=== PATIENT | female | born 1980 | race Caucasian/White ===

== ENCOUNTER 2017-04-03 11:50 | Emergency (ER) | payer OTHER ==
[~2017-04-03] VITALS: Ht 165.1 cm; Wt 80.7 kg
[~2017-04-03 11:50] MED LIST: CLEOCIN HCL150 MG PO; CLEOCIN HCL300 MG PO; FLEXERIL PO; HYDROCODONE-AP1 EAC6 PO; IBUPROFEN 200200 M1 PO; IBUPROFEN 800800 M1 PO; IBUPROFEN 800800 MG PO; LIDOCAINE VISC100 M1 SWISH&SPIT; MEDROLDOSEPACK PO; MOBIC7.5 MG PO; NAPROSYN500 MG PO; NOHOMEMEDICATIONS; NORCO 5-325 TA1 EAC1 PO; NORCO 5-325 TA1 EACH PO; ROBAXIN 750 MG750 M1 PO; TRAMADOL 50 MG50 MG PO; TYLENOL325 MG PO
[2017-04-03 11:51] VITALS: BP 128/87
[2017-04-03] MEDS ORDERED: IBUPROFEN 400400 M2 PO (12:30)
[2017-04-09] MEDS ORDERED: FLEXERIL PO (10:58)
[2017-04-09] MEDS ORDERED: NAPROSYN500 MG PO (10:58)
== END 2017-04-03 12:53 | disposition home or self-care (01) ==
LOC: ER 11:50
DX: K04.7 Periapical abscess without sinus (principal); Z90.710 Acquired absence of both cervix and uterus; Z90.89 Acquired absence of other organs; Z98.890 Other specified postprocedural states; Z90.49 Acquired absence of other specified parts of digestive tract; Z88.5 Allergy status to narcotic agent; Z88.0 Allergy status to penicillin; Z88.6 Allergy status to analgesic agent

== ENCOUNTER 2018-03-24 11:32 | Emergency (ER) | payer OTHER ==
[~2018-03-24] VITALS: Ht 165.1 cm; Wt 80.7 kg
[~2018-03-24 11:32] MED LIST changes: +HYDROCODON-ACE1 EAC7 PO; +IBUPROFEN 400400 M2 PO; +PERCOCET PO; +ULTRAM 50MG TAB50 MG PO
[2018-03-24] MEDS ORDERED: NORFLEX100 MG PO (13:33)
[2018-03-24] MEDS ORDERED: MOBIC7.5 MG PO (13:33)
[2018-03-24] MEDS ORDERED: NORCO 5-325 TA1 EACH PO (13:33)
[2018-03-24 13:46] VITALS: BP 120/91
== END 2018-03-24 13:41 | disposition home or self-care (01) ==
LOC: ER 11:32
DX: M54.16 Radiculopathy, lumbar region (principal); Z90.49 Acquired absence of other specified parts of digestive tract; Z90.710 Acquired absence of both cervix and uterus; Z88.0 Allergy status to penicillin; Z88.5 Allergy status to narcotic agent

== ENCOUNTER 2018-04-01 16:12 | Emergency (ER) | payer OTHER ==
[~2018-04-01] VITALS: Ht 165.1 cm; Wt 80.7 kg
[~2018-04-01 16:12] MED LIST changes: +NORFLEX100 MG PO
[2018-04-01] MEDS ORDERED: ULTRAM 50MG TAB50 MG PO (17:45)
[2018-04-01] MEDS ORDERED: NORFLEX100 MG PO (17:45)
[2018-04-01] MEDS ORDERED: NABUMETONE 750750 M1 PO (17:45)
[2018-04-01 17:56] VITALS: BP 146/106
== END 2018-04-01 18:08 | disposition home or self-care (01) ==
LOC: ER 16:12
DX: S46.811A Strain of other muscles, fascia and tendons at shoulder and upper arm level, right arm, initial encounter (principal); Z88.6 Allergy status to analgesic agent; Z88.5 Allergy status to narcotic agent; Z88.0 Allergy status to penicillin; Z90.710 Acquired absence of both cervix and uterus; Z90.89 Acquired absence of other organs; Z90.49 Acquired absence of other specified parts of digestive tract; X50.0XXA Overexertion from strenuous movement or load, initial encounter; Y92.89 Other specified places as the place of occurrence of the external cause; Y93.89 Activity, other specified; Y99.8 Other external cause status

== ENCOUNTER 2018-04-24 09:36 | Emergency (ER) | payer OTHER ==
[~2018-04-24] VITALS: Ht 165.1 cm; Wt 80.7 kg
[~2018-04-24 09:36] MED LIST changes: +NABUMETONE 750750 M1 PO
[2018-04-24] MEDS ORDERED: ULTRAM 50MG TAB50 MG PO (10:16)
[2018-04-24] MEDS ORDERED: CYCLOBENZAPRINE5 MG PO (10:16)
== END 2018-04-24 10:00 | disposition home or self-care (01) ==
LOC: ER 09:36
DX: S46.812A Strain of other muscles, fascia and tendons at shoulder and upper arm level, left arm, initial encounter (principal); Z88.6 Allergy status to analgesic agent; Z88.5 Allergy status to narcotic agent; Z88.0 Allergy status to penicillin; Z90.710 Acquired absence of both cervix and uterus; Z90.89 Acquired absence of other organs; Z90.49 Acquired absence of other specified parts of digestive tract; X50.0XXA Overexertion from strenuous movement or load, initial encounter; Y92.89 Other specified places as the place of occurrence of the external cause; Y93.89 Activity, other specified; Y99.8 Other external cause status

== ENCOUNTER 2018-05-01 09:29 | Emergency (ER) | payer OTHER ==
[~2018-05-01] VITALS: Ht 165.1 cm; Wt 80.7 kg
[~2018-05-01 09:29] MED LIST changes: +CYCLOBENZAPRINE5 MG PO
[2018-05-01] MEDS ORDERED: ULTRAM 50MG TAB50 MG PO (10:32)
[2018-05-01] MEDS ORDERED: MOBIC15 MG PO (10:32)
== END 2018-05-01 10:51 | disposition home or self-care (01) ==
LOC: ER 09:29
DX: S39.012A Strain of muscle, fascia and tendon of lower back, initial encounter (principal); Z88.6 Allergy status to analgesic agent; Z88.5 Allergy status to narcotic agent; Z88.0 Allergy status to penicillin; Z90.710 Acquired absence of both cervix and uterus; Z90.89 Acquired absence of other organs; Z90.49 Acquired absence of other specified parts of digestive tract; X50.1XXA Overexertion from prolonged static or awkward postures, initial encounter; Y92.89 Other specified places as the place of occurrence of the external cause; Y93.89 Activity, other specified; Y99.8 Other external cause status

== ENCOUNTER 2018-06-09 09:37 | Emergency (ER) | payer OTHER ==
[~2018-06-09] VITALS: Ht 165.1 cm; Wt 80.7 kg
[~2018-06-09 09:37] MED LIST changes: +DICLOFENAC SODI25 MG PO; +MOBIC15 MG PO
[2018-06-09] MEDS ORDERED: TRAMADOL 50 MG50 MG PO (10:11)
[2018-06-09] MEDS ORDERED: PREDNISONE 20 M20 MG PO (10:11)
[2018-06-09] MEDS ORDERED: CYCLOBENZAPRINE5 MG PO (10:11)
[2018-06-09 11:08] VITALS: BP 141/90
== END 2018-06-09 11:10 | disposition home or self-care (01) ==
LOC: ER 09:37
DX: M54.5 Low back pain (principal); X58.XXXA Exposure to other specified factors, initial encounter; Y93.89 Activity, other specified; Y92.89 Other specified places as the place of occurrence of the external cause; Y99.8 Other external cause status; Z90.49 Acquired absence of other specified parts of digestive tract; Z90.710 Acquired absence of both cervix and uterus; Z88.0 Allergy status to penicillin; Z88.5 Allergy status to narcotic agent

== ENCOUNTER 2018-06-19 16:09 | Emergency (ER) | payer OTHER ==
[~2018-06-19] VITALS: Ht 165.1 cm; Wt 80.7 kg
[~2018-06-19 16:09] MED LIST changes: +PREDNISONE 20 M20 MG PO
[2018-06-19] MEDS ORDERED: MOBIC15 MG PO (18:17)
[2018-06-19] MEDS ORDERED: VOLTAREN GEL 1100 G2 TOP (18:17)
[2018-06-19 18:28] VITALS: BP 124/87
== END 2018-06-19 18:29 | disposition home or self-care (01) ==
LOC: ER 16:09
DX: M25.512 Pain in left shoulder (principal); Z90.49 Acquired absence of other specified parts of digestive tract; Z90.710 Acquired absence of both cervix and uterus

== ENCOUNTER 2018-07-01 11:56 | Emergency (ER) | payer OTHER ==
[~2018-07-01] VITALS: Ht 165.1 cm; Wt 80.7 kg
[~2018-07-01 11:56] MED LIST changes: +VOLTAREN GEL 1100 G2 TOP
[2018-07-01 12:29] LABS: URINE CLARITY SL HAZY; URINE COLOR YELLOW
[2018-07-01 12:30] LABS: URINE BILIRUBIN NEGATIVE (Negative); URINE BLOOD TRACE (Negative); URINE GLUCOSE-RANDOM* NEGATIVE (Negative); URINE KETONES NEGATIVE (Negative); URINE LEUKOCYTES-REFLEX 1+ (Negative); URINE NITRITE-REFLEX POSITIVE (Negative); URINE PROTEIN (DIPSTICK) NEGATIVE (Negative); URINE SPECIFIC GRAVITY 1.025 (1.005-1.035); URINE UROBILINOGEN 0.2 E.U./dl (0.2-1.0)
[2018-07-01 12:40] LABS: ABSOLUTE NEUTROPHILS 5.8 thou/uL (1.4-8.2); BASOPHILS 0.5 % (0.0-2.0); EOSINOPHILS 0.6 % (0.0-3.0); HEMATOCRIT 38.5 % (37.0-47.0); LYMPHOCYTES 26.2 % (24.0-44.0); MCH 31.9 pg (26.0-34.0); MCHC 33.8 g/dL (28.0-37.0); MCV 94.5 fL (80.0-100.0); MONOCYTES 6.3 % (1.0-8.0); PLATELET COUNT 461 thou/uL (150-400); POLYS 66.4 % (36.0-66.0); RBC 4.08 mil/uL (4.20-5.00); RDW 14.8 % (10.5-14.5); WBC 8.8 thou/uL (4.0-11.0)
[2018-07-01 12:47] LABS: CASTS None Seen /LPF (None Seen); SQUAMOUS >10 Many /LPF (0-3)
[2018-07-01 12:48] LABS: MUCUS >6 Heavy strn/LPF (None Seen); URINE RBC 0-2 Rare /HPF (0-2); URINE WBC-REFLEX >25 Many /HPF (0-5)
[2018-07-01 12:48] LABS: CALCIUM 9.2 mg/dL (8.5-10.1); CREATININE 0.9 mg/dL (0.6-1.0)
[2018-07-01 12:49] LABS: BACTERIA-REFLEX >30 Many /HPF (None Seen); CRYSTALS None Seen /LPF (None Seen)
[2018-07-01 12:54] LABS: ALBUMIN 3.9 g/dL (3.4-5.0)
[2018-07-01] MEDS ORDERED: DICLOFENAC SODI75 MG PO (13:53)
[2018-07-01] MEDS ORDERED: KEFLEX500 M1 PO (13:59)
[2018-07-01 14:06] VITALS: BP 126/81
== END 2018-07-01 14:07 | disposition home or self-care (01) ==
LOC: ER 11:56
PROVIDERS: Nurse Practitioner Family
DX: N39.0 Urinary tract infection, site not specified (principal); E87.6 Hypokalemia; R10.2 Pelvic and perineal pain; Z88.6 Allergy status to analgesic agent; Z88.5 Allergy status to narcotic agent; Z88.0 Allergy status to penicillin; Z90.710 Acquired absence of both cervix and uterus; Z90.89 Acquired absence of other organs; Z90.49 Acquired absence of other specified parts of digestive tract

== ENCOUNTER 2018-08-06 19:33 | Emergency (ER) | payer OTHER ==
[~2018-08-06] VITALS: Ht 165.1 cm; Wt 80.7 kg
[~2018-08-06 19:33] MED LIST changes: +DICLOFENAC SODI75 MG PO; +KEFLEX500 M1 PO
[2018-08-06] MEDS ORDERED: MEDROLDOSEPACK PO (20:56)
[2018-08-06] MEDS ORDERED: TRAMADOL 50 MG50 MG PO (20:56)
[2018-08-06] MEDS ORDERED: CYCLOBENZAPRINE5 MG PO (20:56)
[2018-08-06 21:05] VITALS: BP 148/96
== END 2018-08-06 21:06 | disposition home or self-care (01) ==
LOC: ER 19:33
DX: M54.5 Low back pain (principal); Z88.6 Allergy status to analgesic agent; Z88.5 Allergy status to narcotic agent; Z88.0 Allergy status to penicillin; Z90.710 Acquired absence of both cervix and uterus; Z90.89 Acquired absence of other organs; Z90.49 Acquired absence of other specified parts of digestive tract

== ENCOUNTER 2018-09-03 12:22 | Emergency (ER) | payer OTHER ==
[~2018-09-03] VITALS: Ht 165.1 cm; Wt 81.2 kg
[2018-09-03] MEDS ORDERED: MOBIC15 MG PO (13:16)
[2018-09-03] MEDS ORDERED: HYDROCODONE-AP1 EAC6 PO (13:16)
[2018-09-03 13:48] VITALS: BP 137/89
== END 2018-09-03 13:48 | disposition home or self-care (01) ==
LOC: ER 12:22
DX: S46.912A Strain of unspecified muscle, fascia and tendon at shoulder and upper arm level, left arm, initial encounter (principal); Z90.49 Acquired absence of other specified parts of digestive tract; Z90.710 Acquired absence of both cervix and uterus; Z88.0 Allergy status to penicillin; Z88.5 Allergy status to narcotic agent; Z88.8 Allergy status to other drugs, medicaments and biological substances; X58.XXXA Exposure to other specified factors, initial encounter; Y93.89 Activity, other specified; Y92.89 Other specified places as the place of occurrence of the external cause; Y99.8 Other external cause status

== ENCOUNTER 2018-09-29 09:50 | Emergency (ER) | payer OTHER ==
[~2018-09-29] VITALS: Ht 165.1 cm; Wt 80.7 kg
[2018-09-29] MEDS ORDERED: ULTRAM 50MG TAB50 MG PO (10:15)
[2018-09-29] MEDS ORDERED: VOLTAREN GEL 1100 G2 TOP (10:17)
[2018-09-29 11:10] VITALS: BP 122/81
== END 2018-09-29 11:17 | disposition home or self-care (01) ==
LOC: ER 09:50
DX: M25.511 Pain in right shoulder (principal); Z88.5 Allergy status to narcotic agent; Z88.6 Allergy status to analgesic agent; Z88.0 Allergy status to penicillin; Z90.49 Acquired absence of other specified parts of digestive tract; Z90.710 Acquired absence of both cervix and uterus; Z98.890 Other specified postprocedural states

== ENCOUNTER 2018-10-14 19:45 | Emergency (ER) | payer OTHER ==
[~2018-10-14] VITALS: Ht 165.1 cm; Wt 80.7 kg
[2018-10-14 20:04] LABS: URINE BILIRUBIN NEGATIVE (Negative); URINE BLOOD TRACE (Negative); URINE CLARITY CLEAR; URINE COLOR YELLOW; URINE GLUCOSE-RANDOM* NEGATIVE (Negative); URINE KETONES TRACE (Negative); URINE LEUKOCYTES-REFLEX NEGATIVE (Negative); URINE NITRITE-REFLEX POSITIVE (Negative); URINE PROTEIN (DIPSTICK) TRACE (Negative); URINE SPECIFIC GRAVITY 1.025 (1.005-1.035)
[2018-10-14 20:11] LABS: AMP/METHAMP Negative (Negative); BARBITURATES Negative (Negative); BENZODIAZEPINES Negative (Negative); COCAINE Negative (Negative); METHADONE Negative (Negative); OPIATES Negative (Negative); PCP Negative (Negative)
[2018-10-14 20:15] LABS: CASTS None Seen /LPF (None Seen); SQUAMOUS 0-3 Few /LPF (0-3); URINE RBC 3-10 Few /HPF (0-2); URINE WBC-REFLEX None Seen /HPF (0-5)
[2018-10-14 20:16] LABS: BACTERIA-REFLEX >30 Many /HPF (None Seen); CRYSTALS None Seen /LPF (None Seen)
[2018-10-14 21:52] VITALS: BP 134/88
== END 2018-10-14 21:54 | disposition home or self-care (01) ==
LOC: ER 19:45
PROVIDERS: Emergency Medicine
DX: M54.5 Low back pain (principal); Z90.49 Acquired absence of other specified parts of digestive tract; Z90.710 Acquired absence of both cervix and uterus; Z88.0 Allergy status to penicillin; Z88.5 Allergy status to narcotic agent; Z88.8 Allergy status to other drugs, medicaments and biological substances

== ENCOUNTER 2018-11-10 15:43 | Emergency (ER) | payer OTHER ==
[~2018-11-10] VITALS: Ht 165.1 cm; Wt 80.7 kg
[2018-11-10] MEDS ORDERED: MOBIC15 MG PO (16:31)
[2018-11-10 17:10] VITALS: BP 133/94
== END 2018-11-10 17:10 | disposition home or self-care (01) ==
LOC: ER 15:43
DX: S46.911A Strain of unspecified muscle, fascia and tendon at shoulder and upper arm level, right arm, initial encounter (principal); Z90.49 Acquired absence of other specified parts of digestive tract; Z90.710 Acquired absence of both cervix and uterus; Z88.0 Allergy status to penicillin; Z88.5 Allergy status to narcotic agent; Z88.6 Allergy status to analgesic agent; X50.0XXA Overexertion from strenuous movement or load, initial encounter; Y93.89 Activity, other specified; Y92.89 Other specified places as the place of occurrence of the external cause; Y99.8 Other external cause status

== ENCOUNTER 2020-03-13 17:51 | Emergency (ER) | payer OTHER ==
[~2020-03-13] VITALS: Ht 165.1 cm; Wt 80.7 kg
[~2020-03-13 17:51] MED LIST changes: +BENTYL 20 MG TA20 M1 PO; +DIAZEPAM 5 MG5 M1 PO; +DIAZEPAM 5 MG5 MG PO; +EC-NAPROSYN500 M1 PO; +LIDODERM1 EACH TRANSDERM; +MELOXICAM15 MG PO; +NORCO 5-325 TA1 EAC2 PO; +ONDANSETRON HCL4 M2 PO; +PREDNISONE 10 M10 M1 PO
[2020-03-13] MEDS ORDERED: MOBIC15 MG PO (19:05)
[2020-03-13 19:45] VITALS: BP 147/98
== END 2020-03-13 19:46 | disposition home or self-care (01) ==
LOC: ER 17:51
DX: M25.511 Pain in right shoulder (principal); Z90.49 Acquired absence of other specified parts of digestive tract; Z90.710 Acquired absence of both cervix and uterus; Z90.89 Acquired absence of other organs; Z88.0 Allergy status to penicillin; Z88.8 Allergy status to other drugs, medicaments and biological substances; Z88.5 Allergy status to narcotic agent; V49.9XXA Car occupant (driver) (passenger) injured in unspecified traffic accident, initial encounter; Y93.89 Activity, other specified; Y92.89 Other specified places as the place of occurrence of the external cause; Y99.8 Other external cause status